=== PATIENT | male | born 1960 | race Caucasian/White ===

== ENCOUNTER 2017-03-16 05:06 | Inpatient (IN) | payer MEDICARE ==
[~2017-03-16] VITALS: Ht 170.2 cm; Wt 63.2 kg
[2017-03-16] VITALS (9 sets, daily range): BP systolic 108–172; BP diastolic 62–93
[2017-03-16] MEDS ORDERED: XANAX 0.5MG TA0.5 MG PO (05:20)
[2017-03-16] MEDS ORDERED: OXYCODONE HCL15 MG PO (05:21)
[2017-03-16] MEDS ORDERED: PRAVACHOL 40MG40 MG PO (05:22)
[2017-03-16] MEDS ORDERED: OXYBUTYNIN5 MG PO (05:22)
[2017-03-16] MEDS ORDERED: PANTOPRAZOLE SO40 MG PO (05:23)
[2017-03-16] MEDS ORDERED: ASPIRIN 81MG TA81 MG PO (05:23)
--- OUTSIDE RECORDS SUMMARY | 2017-03-16 05:42 | External Medical Summary Rpt | CCD ---
Author Author CLEVE Address Unknown Phone Purpose Continuity of Care Document - through 2016
--- OUTSIDE RECORDS SUMMARY | 2017-03-16 05:43 | External Medical Summary Rpt | CCD ---
Author Author Conduent Organization [employer] Address Unknown Phone Unavailable Purpose Continuity of Care Document - through 2016
--- OUTSIDE RECORDS SUMMARY | 2017-03-16 05:44 | External Medical Summary Rpt | CCD ---
Demographics Preferred Language Albanian Marital Status Unknown Worship Affiliation Unknown Race Unknown Ethnic Group Unknown Author Author , CLEVE POON Address Unknown Phone Immunization Unable to retrieve immunization data due to connection failure with Immunization Registry. Please try again later.
--- OUTSIDE RECORDS SUMMARY | 2017-03-16 05:44 | External Medical Summary Rpt | CCD ---
Demographics Preferred Language Icelandic Marital Status Unknown Sabianist Affiliation Unknown Race Unknown Ethnic Group Unknown Author Author , CLEVE POON Address Unknown Phone Immunization Unable to retrieve immunization data due to connection failure with Immunization Registry. Please try again later.
[2017-03-16 06:10] LABS: HEMOGLOBIN 15.9 g/dL (14.1-18.0); LYMPH # 1.7 K/mm3 (0.7-4.5); LYMPH % 22.8 % (10-50)
[2017-03-16 06:38] LABS: BUN 14 mg/dL (7-18); GFR (ESTIMATED) 86 ML/MIN (>60)
--- NOTE | 2017-03-16 07:09 | RADIOLOGY REPORT PS360 ---
CHEST-PORTABLE HISTORY: Chest pain CP ORDERING PHYSICIAN: Sierra Hicks MD PATIENT AGE: 57 years COMPARISON: None available FINDINGS: There has been prior median sternotomy with CABG. Pericardial pacer wires are noted over the lower aspect of the heart on the right. Normal heart size. No evidence of CHF. Multiple nodular opacities are present in the right apex. There are surgical clips in the right axilla/infraclavicular region. No lobar consolidation or collapse. No acute bony anomalies. IMPRESSION: 1. Prior CABG. 2. Multiple nodular opacities in the right apex age and etiology indeterminate. No previous exams available for comparison. Differential diagnosis includes postinflammatory/infectious process versus metastatic disease. Comparison with old exams or follow-up may confirm stability .
--- NOTE | 2017-03-16 07:11 | Emergency Room Report ---
History of Present Illness Time Seen by MD To Presenting Problem in Triage Pt arrived:Ambulance Stretcher Presenting Problem:C/O RIGHT NECK AND SHOULDER BLADE PAIN FOR 3 WEEKS, C/O GAS TONIGHT BUT WALKING HELPED THE PAIN. GIVEN NTG X 2 SL AND ASPIRIN 325 MG PO ENROUTE PER EMS Onset of symptoms date/time:/ or onset unknown for:MEDICAL HX UNKNOWN Treatment Prior to Arrival: EMS TRANSPORT MAILING CLERK Provided by:EMERGENCY COMMUNICATIONS DISPATCHER Sepsis Risk Assessment: Temp: 98 B/P: 150/78 MAP: 88 Pulse: 59 Resp: 22 Recent fever? N Clinical Suspician of Infection? N Mental Status: 1 - Regular (Normal Baseline) Sepsis Risk: Have you (or family members/close friends) recently traveled outside the [place]? N If Yes, where/when: Have you had exposure to infectious disease within the past month? N TB? Other? Specify: Source patient, RN notes reviewed, family, old records Exam Limitations no limitations Comment pt with known card disease with chest pressure with relief with ntg and no chest pain at this time Cardiac Chest Pain Chest pain indicative of cardiac Yes Timing/Duration 1-3 hours, gone now Severity/Quality moderate, indigestion Location central Chest Pain Radiation arm(s) Activities at Onset light activity Nitro Today/Relief 0.4 mg x 2, provided by EMS, complete relief Aspirin Treatment Today 325 mg x 1, provided by EMS Beta ray treatment today no beta ray taken Cardiac risk factors + cardiovascular disease, + family history Prior Workup/Intervention CABG-vessel(s) Timing/Duration this morning Severity moderate ALLERGIES Coded Allergies: No Known Allergies (03/16/17) Home Medications Reported Medications Alprazolam (Xanax 0.5MG) 0.5 MG PO TID OXYCODONE 7.5MG/[id number] (Oxycodon-Acetaminophen 7.5-325) 2 TAB PO Q6 HOURS PRN PAIN PRAVASTATIN SODIUM (Pravastatin Sodium) 40 MG PO QHS OXYBUTYNIN CHLORIDE (Oxybutynin 5MG Tab) 5 MG PO TID Pantoprazole Sodium (Pantoprazole 40MG) 40 MG PO DAILY ASPIRIN (Aspirin) 81 MG PO DAILY History Medical History General CAD? Yes Angina: Yes PA: Yes Hypertension? Yes Hyperlipidemia? No CHF? No DVT? No PE? No COPD? Yes Asthma? No Anemia? No GERD? No Gastric ulcers? No GI Bleed? No Hernia? Yes Thyroid Problems? No Hypothyroidism? No CVA? No Seizures? No Diabetes? No Renal Insuffiency? No End Stage Renal Disease? No UTI? No Stones? Yes BPH? Yes GB Disease: Yes Nephritic Syndrome? No Asplenia? No Hepatitis? No Sickle Cell Disease? No Arthritis? No Migraines? No Cataracts? No Glaucoma? No MRSA? No HIV? No TB? No Anxiety? Yes Depression? Yes Cancer? No More? No Immunization Hx DT/Tetanus Unknown Surgical Hx Previous Surgery?Y Coronary Artery Bypass HERNIA REPAIR BACK SX X 5 BILATERAL EYE SURGERY Social History Smoking Hx Smoker: Former Smoker Tobacco: No Alcohol Alcohol: No Drugs none Review of Systems All Other Systems Reviewed and Negative Constitutional denies fever Eyes denies drainage ENT denies: ear discharge, epistaxis, throat pain. Respiratory denies cough, denies shortness of breath, denies wheezing Cardiovascular see HPI, chest pain, denies syncope Gastrointestinal denies abdominal pain, denies diarrhea, denies vomiting Genitourinary denies: frequency, hesitancy, hematuria. Musculoskeletal denies back pain, denies joint pain, denies joint swelling, denies neck pain Skin denies rash Psychiatric/Neurological denies headache, denies seizure Physical Exam Vital Signs Vital Signs Date Time Temp Pulse Resp B/P Pulse O2 O2 Flow FiO2 Ox Delivery Rate 03/16 0730 67 22 142/78 99 03/16 0643 59 22 150/78 99 03/16 0559 60 22 131/78 99 03/16 0509 98.0 61 20 113/76 95 - WBC >12,000 or <4,000 or 10% bands? 2 or more SIRS Criteria Met? B/P:142/78 MAP:88 Creatinine >2.0? UA output<0.5ml/kg/hr for 2 hrs? Platelet count >100,000? Lactate >2.0mmol/1? INR >1.2 or PTT > than 60 sec? Evidence of Organ Dysfunction? Provider documented clinical suspician of infection? N Sepsis Criteria Count: 1 Sepsis Risk: General Appearance no apparent distress Eye Exam - bilateral eye PERRL, bilateral eye EOMI Ear, Nose, Throat normal ENT inspection Neck supple Respiratory Status No: respiratory distress. Lung Sounds bilateral: lungs clear. Cardiovascular regular rate/rhythm, systolic murmur Peripheral Pulses Pulses normal Yes Gastrointestinal soft Extremities normal inspection Strength 4 Upper Ext (L), 4 Upper Ext (R), 4 Lower Ext (L), 4 Lower Ext (R) Neurologic alert, senior sales representative II-XII nml as tested, no motor/sensory deficits Reflexes Reflexes normal No Mental status normal mood/affect Skin intact Medical Decision Making LABS/Meds/Orders Pt receiving controlled substance in ED? No Results/Orders Laboratory Tests 03/16/17 0520: Sodium 136, Potassium 3.6, Chloride 101, Carbon Dioxide 28, BUN 14, Creatinine 0.9, Estimated Creat Clear 82, Estimated GFR (MDRD) 86, Glucose 109 H, Calcium 9.6, Total Bilirubin 0.8, AST 29, ALT 42, Alkaline Phosphatase 85, Creatine Kinase 55, CK-MB (CK-2) Rel Index 0.9, CK and CKMB Interp < 0.5, Troponin I 0.14 H, Total Protein 7.5, Albumin 3.9, Globulin 3.6 H, Albumin/Globulin Ratio 1.1, WBC 7.3, RBC 5.23, Hgb 15.9, Hct 46.7, MCV 89.3, RDW 13.5, Plt Count 155, MPV 8.6, Gran % 67.3, Gran # 4.9, Lymphocytes % 22.8, Monocytes % 8.4, Eosinophils % 0.9, Basophils % 0.5, Lymphocytes # 1.7, Monocytes # 0.6, Eosinophils # 0.1, Basophils # 0.0, PUBS MCHC 34.1, MCH 30.4 Current Medication Orders Sig/Laly Start time Last Medication Dose Route Stop Time Status Admin Fentanyl Citrate 25 MCG PRN PRN 03/16 730 UNV IV 03/16 2300 Fentanyl Citrate 50 MCG PRN PRN 03/16 730 UNV IV 03/16 2300 Flumazenil 0.2 MG PRN PRN 03/16 730 UNV IV 03/16 2300 Heparin Sodium (Beef 5,000 UNITS PRN PRN 03/16 730 UNV Lung) IV 03/17 728 Heparin Sodium/ 3,000 UNITS PRN PRN 03/16 730 UNV Sodium Chloride IV 03/17 728 Lidocaine HCl 20 ML ONCE ONE 03/16 730 UNV IJ 03/16 731 Midazolam HCl 1 MG PRN PRN 03/16 730 UNV IV 03/16 2300 Midazolam HCl 1 MG PRN PRN 03/16 730 UNV IV 03/16 2300 Naloxone HCl 0.4 MG [id number] PRN 03/16 730 UNV IV 03/16 2300 Nitroglycerin 1 IN ONCE ONE 03/16 730 DC 03/16 TP 03/16 Nitroglycerin 800 MCG PRN PRN 03/16 730 UNV IV 03/17 728 Verapamil HCl 5 MG PRN PRN 03/16 730 UNV IV 03/17 728 Nitroglycerin 0 .STK-MED ONE 03/16 725 DC .ROUTE Ticagrelor 180 MG ONCE ONE 03/16 715 DC 03/16 PO 03/16 Ticagrelor 0 .STK-MED ONE 03/16 705 DC PO Sodium Chloride 10 ML PRN PRN 03/16 530 AC IV 03/17 528 Orders Procedure Date/time Status ECHO ADULT 03/16 729 Active IV SALINE LOCK 03/16 528 Active ELECTROCARDIOGRAM REQUEST 03/16 515 Active IV SALINE LOCK 03/16 515 Active SUPERVISOR NUT PROCESSING 03/16 515 Active CBC WITH AUTO DIFF 03/16 515 Complete CARDIAC ENZYMES 03/16 515 Complete CHEM 12 PROFILE 03/16 515 Complete 12 LEAD EKG-SYLVIASON (INITIAL) 03/16 UNK Active VITAL SIGNS 03/16 UNK Active Schedule Procedure 03/16 UNK Active PREPARE CONSENT 03/16 UNK Active CM/EKG CM/EKG 1 Monitor Rhythm Sinus Bradycardia EKG abn with t inversion and anuyersymal changes CM/EKG 2 Monitor Rhythm Sinus Bradycardia EKG compared w/(date of old), no changes XRAY/CT/US XRAY/CT/US XRAY chest XR interpretation by reviewed by me Xray Results normal/NAD RYAN Score for N-Stemi/Angina RYAN N-STEMI SCORE RYAN N-STEMI SCORE Response Value Age of patient Less than 65 yrs 0 Number of risk factors for CAD Presence of 3 or more 1 Prior coronary artery stenosis (seen in angiography) 50% or more 1 ST-Segment deviation on ECG (>1 min) Present 1 Prior aspirin intake ASA intake in last 7 days 1 Severe anginal chest pain 2 or more episodes/24hr 1 Elevated cardiac markers(CK-MB or troponin) Present 1 Total 6 Departure Departure Time of Disposition 722 Disposition Still a Patient Clinical Impression Primary Impression: Non-STEMI (non-ST elevated myocardial infarction) Condition STABLE Referrals SUMANTH STEVENS discussed with dr calvo ED Critical Care Critical Care No at [phone]
--- NOTE | 2017-03-16 07:44 | CONSULT NOTE ---
Standard Demographics Patient Demo Date of Consultation: 03/16/17 Referring Provider: Brandon Umaña MD Reason for Consultation: Angina, CAD with prior CABG PRIMARY DIAGNOSIS: Chest pain Problem list Problem list: 1. CAD A. UT with CABG, 2003, [facility] B. Recurrent UT with repeat CABG, [id number], [facility] 2. HTN 3. Hyperlipidemia 4. Tobacco use with COPD 5. Gallstones 6. Kidney Stones 7. Chronic back pain History of present illness: History of present illness: 57 yo WM in ER with known CAD/CABG and previous UT's presented for recurrent chest pressure with radiation to both shoulders starting last evening. Similar symptoms have been present for about one month but are not associated with activity and are worse with sitting or lieing down. The symptoms last evening were worse, woke him from sleep and prompted ER visit. Pt was given ASA and NTG in ER with resolution of symptoms. EKG shows sinus torsten, anterior infarct pattern with STT wave abnormalities with possible aneurysmal changes. Initial troponin is positive at 0.14. Cardiology consulted for evaluation. Past Medical History: General: Hypertension Yes CVA No Seizures No TB No COPD Yes Asthma No Diabetes No Angina Yes UT Yes Hyperlipidemia No Cancer No MRSA No GB Disease Yes Past Surgical HX: Previous Surgery?Y Coronary Artery Bypass HERNIA REPAIR BACK SX X 5 BILATERAL EYE SURGERY Allergies Coded Allergies: No Known Allergies (03/16/17) Home medications: Reported Medications Alprazolam (Xanax 0.5MG) 0.5 MG PO TID OXYCODONE 7.5MG/[id number] (Oxycodon-Acetaminophen 7.5-325) 2 TAB PO Q6 HOURS PRN PAIN PRAVASTATIN SODIUM (Pravastatin Sodium) 40 MG PO QHS OXYBUTYNIN CHLORIDE (Oxybutynin 5MG Tab) 5 MG PO TID Pantoprazole Sodium (Pantoprazole 40MG) 40 MG PO DAILY ASPIRIN (Aspirin) 81 MG PO DAILY Current Medications: Current Medications Fentanyl Citrate 25 MCG PRN PRN IV (UNV) Fentanyl Citrate 50 MCG PRN PRN IV (UNV) Flumazenil 0.2 MG PRN PRN IV (UNV) Heparin Sodium (Beef Lung) 5,000 UNITS PRN PRN IV (UNV) Heparin Sodium/Sodium Chloride 3,000 UNITS PRN PRN IV (UNV) Lidocaine HCl 20 ML ONCE ONE IJ (UNV) Midazolam HCl 1 MG PRN PRN IV (UNV) Midazolam HCl 1 MG PRN PRN IV (UNV) Naloxone HCl 0.4 MG [id number] PRN IV (UNV) Nitroglycerin 1 IN ONCE ONE TP (DC) Nitroglycerin 800 MCG PRN PRN IV (UNV) Verapamil HCl 5 MG PRN PRN IV (UNV) Nitroglycerin 0 .STK-MED ONE .ROUTE (DC) Ticagrelor 180 MG ONCE ONE PO (DC) Ticagrelor 0 .STK-MED ONE PO (DC) Sodium Chloride 10 ML PRN PRN IV Immunization HX DT/Tetanus Unknown Family history Family HX Family Hx Insignificant No Social Hx: Smoking HX Tobacco Yes Packs/day < 1 PACK Alcohol Alcohol: No Hx of Drug Use Drug Use? No Review of systems: Constitutional No: no symptoms reported. Respiratory SOB with excertion. Cardiovascular see HPI, chest pain Gastrointestinal/Abdominal No no symptoms reported Genitourinary No: no symptoms reported. Musculoskeletal back pain. Neurological No: no symptoms reported. Exam: Admission Vital Signs: 1ST Vital Signs Result Date Time Pulse Ox 95 03/16 509 B/P 113/76 03/16 509 Temp 98.0 03/16 509 Pulse 61 03/16 509 Resp 20 03/16 509 Last Vital Signs: Vital Signs Result Date Time Pulse Ox 99 03/16 730 B/P 142/78 03/16 730 Pulse 67 03/16 730 Resp 22 03/16 730 Temp 98.0 03/16 509 Exam General appearance: alert, awake, no acute distress Neck: no carotid bruit, no JVD Cardiovascular: bradycardia Respiratory: clear to auscultation ABD: soft, no tenderness Extremities: moves all, no peripheral edema Neuro: alert, intact, oriented Laboratory data: Laboratory Tests 03/16/17 0520: Sodium 136, Potassium 3.6, Chloride 101, Carbon Dioxide 28, BUN 14, Creatinine 0.9, Estimated Creat Clear 82, Estimated GFR (MDRD) 86, Glucose 109 H, Calcium 9.6, Total Bilirubin 0.8, AST 29, ALT 42, Alkaline Phosphatase 85, Creatine Kinase 55, CK-MB (CK-2) Rel Index 0.9, CK and CKMB Interp < 0.5, Troponin I 0.14 H, Total Protein 7.5, Albumin 3.9, Globulin 3.6 H, Albumin/Globulin Ratio 1.1, WBC 7.3, RBC 5.23, Hgb 15.9, Hct 46.7, MCV 89.3, RDW 13.5, Plt Count 155, MPV 8.6, Gran % 67.3, Gran # 4.9, Lymphocytes % 22.8, Monocytes % 8.4, Eosinophils % 0.9, Basophils % 0.5, Lymphocytes # 1.7, Monocytes # 0.6, Eosinophils # 0.1, Basophils # 0.0, PUBS MCHC 34.1, MCH 30.4 Plan Assessment: 1. Chest pain with abnormal EKG and elevated troponins, consistent with NSTEMI. 2. HTN 3. HLD, on statin 4. COPD with continued tobacco use 5. chronic pain syndrome RYAN N-STEMI SCORE RYAN N-STEMI SCORE Response Value Age of patient Less than 65 yrs 0 Number of risk factors for CAD Presence of 3 or more 1 Prior coronary artery stenosis (seen in angiography) 50% or more 1 ST-Segment deviation on ECG (>1 min) Present 1 Prior aspirin intake ASA intake in last 7 days 1 Severe anginal chest pain 2 or more episodes/24hr 1 Elevated cardiac markers(CK-MB or troponin) Present 1 Total 6 Plan: 1. Cardiac cath Risks and benefits discussed with patient and family, he agrees to proceed. 2. ASA and Brilinta given. 3. NTG paste started. 4. Echo in progress at 0903
--- NOTE | 2017-03-16 07:44 | CONSULT NOTE ---
Standard Demographics Patient Demo Date of Consultation: 03/16/17 Referring Provider: Brandon Umaña MD Reason for Consultation: Angina, CAD with prior CABG PRIMARY DIAGNOSIS: Chest pain Problem list Problem list: 1. CAD A. [place] with CABG, 2003, [facility] B. Recurrent HI with repeat CABG, [id number], [facility] 2. HTN 3. Hyperlipidemia 4. Tobacco use with COPD 5. Gallstones 6. Kidney Stones 7. Chronic back pain History of present illness: History of present illness: 57 yo WM in ER with known CAD/CABG and previous HI's presented for recurrent chest pressure with radiation to both shoulders starting last evening. Similar symptoms have been present for about one month but are not associated with activity and are worse with sitting or lieing down. The symptoms last evening were worse, woke him from sleep and prompted ER visit. Pt was given ASA and NTG in ER with resolution of symptoms. EKG shows sinus torsten, anterior infarct pattern with STT wave abnormalities with possible aneurysmal changes. Initial troponin is positive at 0.14. Cardiology consulted for evaluation. Past Medical History: General: Hypertension Yes CVA No Seizures No TB No COPD Yes Asthma No Diabetes No Angina Yes HI Yes Hyperlipidemia No Cancer No MRSA No GB Disease Yes Past Surgical HX: Previous Surgery?Y Coronary Artery Bypass HERNIA REPAIR BACK SX X 5 BILATERAL EYE SURGERY Allergies Coded Allergies: No Known Allergies (03/16/17) Home medications: Reported Medications Alprazolam (Xanax 0.5MG) 0.5 MG PO TID OXYCODONE 7.5MG/[id number] (Oxycodon-Acetaminophen 7.5-325) 2 TAB PO Q6 HOURS PRN PAIN PRAVASTATIN SODIUM (Pravastatin Sodium) 40 MG PO QHS OXYBUTYNIN CHLORIDE (Oxybutynin 5MG Tab) 5 MG PO TID Pantoprazole Sodium (Pantoprazole 40MG) 40 MG PO DAILY ASPIRIN (Aspirin) 81 MG PO DAILY Current Medications: Current Medications Fentanyl Citrate 25 MCG PRN PRN IV (UNV) Fentanyl Citrate 50 MCG PRN PRN IV (UNV) Flumazenil 0.2 MG PRN PRN IV (UNV) Heparin Sodium (Beef Lung) 5,000 UNITS PRN PRN IV (UNV) Heparin Sodium/Sodium Chloride 3,000 UNITS PRN PRN IV (UNV) Lidocaine HCl 20 ML ONCE ONE IJ (UNV) Midazolam HCl 1 MG PRN PRN IV (UNV) Midazolam HCl 1 MG PRN PRN IV (UNV) Naloxone HCl 0.4 MG [id number] PRN IV (UNV) Nitroglycerin 1 IN ONCE ONE TP (DC) Nitroglycerin 800 MCG PRN PRN IV (UNV) Verapamil HCl 5 MG PRN PRN IV (UNV) Nitroglycerin 0 .STK-MED ONE .ROUTE (DC) Ticagrelor 180 MG ONCE ONE PO (DC) Ticagrelor 0 .STK-MED ONE PO (DC) Sodium Chloride 10 ML PRN PRN IV Immunization HX DT/Tetanus Unknown Family history Family HX Family Hx Insignificant No Social Hx: Smoking HX Tobacco Yes Packs/day < 1 PACK Alcohol Alcohol: No Hx of Drug Use Drug Use? No Review of systems: Constitutional No: no symptoms reported. Respiratory SOB with excertion. Cardiovascular see HPI, chest pain Gastrointestinal/Abdominal No no symptoms reported Genitourinary No: no symptoms reported. Musculoskeletal back pain. Neurological No: no symptoms reported. Exam: Admission Vital Signs: 1ST Vital Signs Result Date Time Pulse Ox 95 03/16 509 B/P 113/76 03/16 509 Temp 98.0 03/16 509 Pulse 61 03/16 509 Resp 20 03/16 509 Last Vital Signs: Vital Signs Result Date Time Pulse Ox 99 03/16 730 B/P 142/78 03/16 730 Pulse 67 03/16 730 Resp 22 03/16 730 Temp 98.0 03/16 509 Exam General appearance: alert, awake, no acute distress Neck: no carotid bruit, no JVD Cardiovascular: bradycardia Respiratory: clear to auscultation ABD: soft, no tenderness Extremities: moves all, no peripheral edema Neuro: alert, intact, oriented Laboratory data: Laboratory Tests 03/16/17 0520: Sodium 136, Potassium 3.6, Chloride 101, Carbon Dioxide 28, BUN 14, Creatinine 0.9, Estimated Creat Clear 82, Estimated GFR (MDRD) 86, Glucose 109 H, Calcium 9.6, Total Bilirubin 0.8, AST 29, ALT 42, Alkaline Phosphatase 85, Creatine Kinase 55, CK-MB (CK-2) Rel Index 0.9, CK and CKMB Interp < 0.5, Troponin I 0.14 H, Total Protein 7.5, Albumin 3.9, Globulin 3.6 H, Albumin/Globulin Ratio 1.1, WBC 7.3, RBC 5.23, Hgb 15.9, Hct 46.7, MCV 89.3, RDW 13.5, Plt Count 155, MPV 8.6, Gran % 67.3, Gran # 4.9, Lymphocytes % 22.8, Monocytes % 8.4, Eosinophils % 0.9, Basophils % 0.5, Lymphocytes # 1.7, Monocytes # 0.6, Eosinophils # 0.1, Basophils # 0.0, PUBS MCHC 34.1, MCH 30.4 Plan Assessment: 1. Chest pain with abnormal EKG and elevated troponins, consistent with NSTEMI. 2. HTN 3. HLD, on statin 4. COPD with continued tobacco use 5. chronic pain syndrome RYAN N-STEMI SCORE RYAN N-STEMI SCORE Response Value Age of patient Less than 65 yrs 0 Number of risk factors for CAD Presence of 3 or more 1 Prior coronary artery stenosis (seen in angiography) 50% or more 1 ST-Segment deviation on ECG (>1 min) Present 1 Prior aspirin intake ASA intake in last 7 days 1 Severe anginal chest pain 2 or more episodes/24hr 1 Elevated cardiac markers(CK-MB or troponin) Present 1 Total 6 Plan: 1. Cardiac cath Risks and benefits discussed with patient and family, he agrees to proceed. 2. ASA and Brilinta given. 3. NTG paste started. 4. Echo in progress at 0903
--- OUTSIDE RECORDS SUMMARY | 2017-03-16 07:47 | External Medical Summary Rpt | CCD ---
Author Author , CLEVE POON Address Unknown Phone [email or web address] Purpose Continuity of Care Document - through 2016 Problems Code Diagnosis DOS Provider Status D69.6 Thrombocyto penia, unspecified E78.1 Pure hyperglycer idemia F41.1 Generalized anxiety disorder I10 Essential (primary) hypertensio n I25.10 Atheroscler otic heart disease of [place] coronary artery without angina pectoris K21.9 Gastro-esop hageal reflux disease without esophagitis K76.0 Fatty (change of) liver, not elsewhere classified M25.512 Pain in left shoulder N40.1 Benign prostatic hyperplasia with lower urinary tract symptoms R00.1 Bradycardia , unspecified R53.83 Other fatigue Z00.00 Encounter for general adult medical examination without abnormal findings Z86.79 Personal history of other diseases of the circulatory system Z95.1 Presence of aortocorona ry bypass graft
--- OUTSIDE RECORDS SUMMARY | 2017-03-16 07:47 | External Medical Summary Rpt | Continuity of Care Document ---
Author Author Organization Address Unknown Phone Unavailable Care Team Providers Care Census Taker Name Role Phone , Unavailable Unavailable EMS Current Medications Section EMS Allergies and Adverse Reactions EMS Past Medical History Medications Administered Section EMS Procedures Performed EMS Vital Signs EMS Patient Care Report Narrative Dispatched for a 57 YOM thinks he is having a heart attack. Arrived on the scene to find patient up and walking around. Patient states he is having chest pain right side of his chest that goes under right shoulder blade. Patient advises that he has been up since 0100 today with this and that walking around helps. Patient states that this all started 2 weeks ago, after an argument with family. He advises that he does have kidney stones and gallstones and that he has a doctors appointment later this day. Patient also has an extensive cardiac history, and he advises that his past heart attacks were atypical symptoms. Patient requested transport to [facility] with the insistence of his daughter and Transported to [facility], placed in room 7 and care transferred to RN.
--- OUTSIDE RECORDS SUMMARY | 2017-03-16 07:47 | External Medical Summary Rpt | CCD ---
Author Author , CLEVE POON Address Unknown Phone [email or web address] Purpose Continuity of Care Document - through 2016 Problems Code Diagnosis DOS Provider Status D69.6 Thrombocyto penia, unspecified E78.1 Pure hyperglycer idemia F41.1 Generalized anxiety disorder I10 Essential (primary) hypertensio n I25.10 Atheroscler otic heart disease of [place] coronary artery without angina pectoris K21.9 Gastro-esop [...]
--- OUTSIDE RECORDS SUMMARY | 2017-03-16 07:47 | External Medical Summary Rpt | Continuity of Care Document ---
Author Author Organization Address Unknown Phone Unavailable Care Team Providers Care Package Handler Name Role Phone , Unavailable Unavailable EMS [...] were atypical symptoms. Patient requested transport to [facility] with the insistence of his daughter and Transported to [facility], placed in room 7 and care transferred to RN.
--- OUTSIDE RECORDS SUMMARY | 2017-03-16 07:49 | External Medical Summary Rpt ---
Author Author CLEVE Sage, CLEVE Sage Organization [employer] Address Unknown Phone Unavailable
--- OUTSIDE RECORDS SUMMARY | 2017-03-16 07:49 | External Medical Summary Rpt | CCD ---
Demographics Preferred Language Moldovan Marital Status Unknown Temple Affiliation Unknown Race Unknown Ethnic Group Unknown Author Author , CLEVE POON Address Unknown Phone Immunization Unable to retrieve immunization data due to connection failure with Immunization Registry. Please try again later.
--- OUTSIDE RECORDS SUMMARY | 2017-03-16 07:49 | External Medical Summary Rpt | CCD ---
Demographics Preferred Language Filipino Marital Status Unknown Baptism Affiliation Unknown Race Unknown Ethnic Group Unknown Author Author , CLEVE POON Address Unknown Phone Immunization Unable to retrieve immunization data due to connection failure with Immunization Registry. Please try again later.
--- NOTE | 2017-03-16 08:17 | PHARMACY CLINIC NOTE ---
Patient Demographics Patient Demographics Admission date: 03/16/17 Date: 03/16/17 Time: 08 Allergies Coded Allergies: No Known Allergies (03/16/17) HEIGHT- FT: 5 IN: 8.00 K.772 VTE General Information Labs: Laboratory Tests 03/16 0520 Hematology Hgb (14.1 - 18.0 g/dL) 15.9 Hct (42.0 - 52.0 %) 46.7 Plt Count (142 - 424 K/mm3) 155 Disclaimer The following section includes nursing documentation that has been pulled in for pharmacy review. VTE prophylaxis NQF [id number] VTE prophylaxis ordered? Yes Type of prophylaxis/treatment: MINNIE at 0817
--- NOTE | 2017-03-16 10:48 | RADIOLOGY REPORT PS360 ---
CARDIAC CATHETERIZATION DATE OF CATHETERIZATION:03/16/2017 10:16 AM PROCEDURES: 1. Left heart catheterization 2. Left ventriculogram 3. Selective coronary angiogram 4. Left internal mammary angiography 5. Selective engagement of the saphenous vein graft to the circumflex artery 6. Selective engagement of the saphenous vein graft to the right coronary artery INDICATION FOR TEST: 1. History of coronary artery disease 2. History of myocardial infarction 3. History of coronary artery bypass graft surgery 4. Elevated troponins Informed consent was obtained prior to the procedure. COMPLICATIONS: None ESTIMATED BLOOD LOSS: Less than 10 ml. TECHNIQUE: One percent lidocaine was used to anesthetize the right groin. The right femoral artery was accessed via the Seldinger technique. A 4-Mauritian sheath was placed in the right femoral artery. The JL-4 JR4 multipurpose catheter were used to perform left heart catheterization left ventriculogram selective coronary angiography as well as left internal mammary angiography and selective engagement of the 2 saphenous vein grafts. At the end of the procedure the patient transferred the postop holding area in stable condition for sheath removal ANGIOGRAPHIC RESULTS: 1. The left main artery normal 2. The left anterior descending artery is proximally occluded 3. The circumflex artery is nondominant and gives rise to a ramus intermedius which has a mid vessel 70-80% stenosis at a 2 mm vessel. The remaining circumflex artery is occluded not giving rise to any obtuse marginal arteries 4. The right coronary artery is dominant and subtotally occluded at mid segment immediately after the RV marginal 5. The MCGUIRE ventriculogram reveals mid anterior apical akinesis with aneurysmal dilatation. The anterior base does move. Inferior wall has good function with mild distal inferior apical hypokinesis. Estimated ejection fraction 45-50% 6. The left ventricular end-diastolic pressure less than 10 mmHg 7. The left internal mammary artery is physiologically and anatomically proximally occluded with no antegrade communication to the left anterior descending artery 8. The saphenous vein graft to the posterior descending artery off the right coronary artery is widely patent with mild atheromatous plaque 9. The saphenous vein graft to the left circumflex artery is patent. The vein graft originates off the aorta and is normal in approximately 2 cm distal to the aorta splits into an inferior and superior vein grafts limb. The superior limb has no significant atheromatous plaque greater than 20% and makes its anastomosis on to the proximal second obtuse marginal artery. There is antegrade flow and retrograde filling of this second obtuse marginal artery. The inferior vein graft limb has a long tubular 50-60% stenosis compared to its proximal and distal segment. Distal to this tubular stenosis, the vein graft is a large 4 to 5 mm caliber vessel and then makes its anastomosis on to the third obtuse marginal artery. There is antegrade and retrograde filling of this third obtuse marginal artery. The caliber of the 50-60% tubular stenosis within the inferior limb of the vein graft matches the caliber of the third obtuse marginal artery in which the vein graft is anastomosed. IMPRESSION: 1. Chronic occlusion of the proximal LAD with occluded CHEN graft and akinetic anterior apical aneurysmal wall as described above 2. Large regional wall motion abnormality with only mildly reduced ejection fraction at 45-50% 3. Normal left ventricular end-diastolic pressure 4. Patent saphenous vein graft to the dominant right coronary artery 5. Patent saphenous vein graft which splits in a Y manner and supplies the second and third obtuse marginal artery. The long stenosis in the vein graft supplying the third obtuse marginal artery matches the caliber of the [place] third obtuse marginal artery therefore I do not believe stenting will benefit or improved flow to the second obtuse marginal artery PLAN: 1. Continue medical management 2. Antianginal medications 3. LDL less than 55 4. Cardiac rehabilitation 5. Aggressive risk factor modification
--- NOTE | 2017-03-16 13:48 | HISTORY AND PHYSICAL REPORT ---
Demographics: Admit date: 03/16/17 Chief complaint: chest pressure PRIMARY DIAGNOSIS: NSTEMI Allergies: Coded Allergies: No Known Allergies (03/16/17) History of present illness: History of present illness: 57 yo WM in ER with known CAD/CABG and previous HI's presented for recurrent chest pressure with radiation to both shoulders starting last evening. Similar symptoms have been present for about one month but are not associated with activity and are worse with sitting or lieing down. The symptoms last evening were worse, woke him from sleep and prompted ER visit. Pt was given ASA and NTG in ER with resolution of symptoms. EKG shows sinus torsten, anterior infarct pattern with STT wave abnormalities with possible aneurysmal changes. Initial troponin is positive at 0.14. Cardiology consulted for evaluation. Above per Cardiology ETHEL Marinelli. Family further reports h/o 60 pound weight loss during the last 6 months, right posterior chest pain, and loss of appetite. They were aware of lung nodules and state he was referred to oncology for FU; however patient refused to go. Patient was taken to the corn lab technician (see report). He had some intermittent confusion s/p cath. Shortly after admission to the floor he became increasingly confused. No unilateral weakness or slurred speech. He has been without his xanax and oxycodone for 3 days, both of which he has taken for years. Past medical history: Family HX Diabetes No CAD Yes Hypertension Yes Hyperlipidemia Yes Cancer No TB No Immunization HX DT/Tetanus Unknown Flu 2015-FSN Pneumonia Received In Past TB Test in last year No General CAD? Yes Angina: Yes HI: Yes Hypertension? Yes Hyperlipidemia? No CHF? No DVT? No PE? No COPD? Yes Asthma? No Anemia? No GERD? No Gastric ulcers? No GI Bleed? No Hernia? Yes Thyroid Problems? No Hypothyroidism? No CVA? No Seizures? No Diabetes? No Renal Insuffiency? No UTI? No Stones? Yes BPH? Yes GB Disease: Yes Nephritic Syndrome? No Asplenia? No Hepatitis? No Sickle Cell Disease? No Arthritis? No Migraines? No Cataracts? No Glaucoma? No MRSA? No HIV? No TB? No Anxiety? Yes Depression? Yes Cancer? No More? No Past Surgical HX Previous Surgery?Y Coronary Artery Bypass HERNIA REPAIR BACK SX X 5 BILATERAL EYE SURGERY Current home meds: Reported Medications OXYCODONE HCL (Oxycodone Hcl) 15 MG PO Q6HP PRN PAIN Alprazolam (Xanax 0.5MG) 0.5 MG PO TID PRAVASTATIN SODIUM (Pravastatin Sodium) 40 MG PO QHS OXYBUTYNIN CHLORIDE (Oxybutynin 5MG Tab) 5 MG PO TID Pantoprazole Sodium (Pantoprazole 40MG) 40 MG PO DAILY ASPIRIN (Aspirin) 81 MG PO DAILY Social Hx: Smoking HX Tobacco Yes Type Cigarettes Packs/day < 1 PACK Alcohol Alcohol: No Hx of Drug Use Drug Use? No Patient's support system is good Review of systems: Constitutional other (weight loss, loss of appetite). No: diaphoresis, fever, malaise. Eyes No: no symptoms reported. Ears, Nose, Mouth, Throat No no symptoms reported Respiratory cough, shortness of breath. No: wheezing. Cardiovascular see HPI Gastrointestinal/Abdominal No no symptoms reported Genitourinary No: no symptoms reported. Musculoskeletal No: no symptoms reported. Skin No: no symptoms reported. Neurological Yes: see HPI. Psychiatric No: no symptoms reported. Exam: Lab data for last 24 hours: Laboratory Tests 03/16/17 0520: Sodium 136, Potassium 3.6, Chloride 101, Carbon Dioxide 28, BUN 14, Creatinine 0.9, Estimated Creat Clear 82, Estimated GFR (MDRD) 86, Glucose 109 H, Calcium 9.6, Total Bilirubin 0.8, AST 29, ALT 42, Alkaline Phosphatase 85, Creatine Kinase 55, CK-MB (CK-2) Rel Index 0.9, CK and CKMB Interp < 0.5, Troponin I 0.14 H, Total Protein 7.5, Albumin 3.9, Globulin 3.6 H, Albumin/Globulin Ratio 1.1, WBC 7.3, RBC 5.23, Hgb 15.9, Hct 46.7, MCV 89.3, RDW 13.5, Plt Count 155, MPV 8.6, Gran % 67.3, Gran # 4.9, Lymphocytes % 22.8, Monocytes % 8.4, Eosinophils % 0.9, Basophils % 0.5, Lymphocytes # 1.7, Monocytes # 0.6, Eosinophils # 0.1, Basophils # 0.0, PUBS MCHC 34.1, MCH 30.4 Admission vital signs: 1ST Vital Signs Result Date Time Pulse Ox 95 03/16 509 B/P 113/76 03/16 509 Temp 98.0 03/16 050 Pulse 61 03/16 050 Resp 20 03/16 050 O2 Delivery ROOM AIR 03/16 1106 O2 Flow Rate 2 03/16 1300 Exam General appearance: alert, thin, restless Eyes: anicteric ENT: mucous membranes moist Neck: non-tender, no carotid bruit, no JVD Cardiovascular: regular rate & rhythm, no murmur, normal peripheral pulses, no peripheral edema Respiratory: clear to auscultation, diminished breath sounds ABD: non-distended, normal bowel sounds, no rebound, soft, no tenderness, no guarding, no organomegaly Genitourinary: no dysuria, no hematuria Extremities: moves all Musculoskeletal: sensation intact Skin: dry, intact, appears mildly jaundice Neuro: alert, oriented to self only, states "Obama is president" and year is "1978." Bilateral grasps equal, no arm drift, no facial droop, pedal pushes equal, PERRLA Plan: Problem List 1. Non-STEMI (non-ST elevated myocardial infarction) Assessment/Plan See cath report. Medical management. Continue ANN MARIE-I, ARB and aspirin. 2. Lung nodules Assessment/Plan Will obtain CT report from [place]. Repeat CT chest today. 3. Weight loss, abnormal Assessment/Plan Weight loss in presence of lung nodules and loss of appetite is concerning for metastatic disease. CT chest/abdomen and pelvis to evaluate for underlying disease. 4. Loss of appetite Assessment/Plan See above. 5. Right-sided chest pain Assessment/Plan Will obtain RUQ ultrasound to r/o cholecystitis. 6. Confusion and disorientation Assessment/Plan May be related to anesthesia, withdraws from opiates/benzos or even metastatic disease. Restart xanax at home dose. Decrease oxycodone to 5 mg PO Q6 hours PRN. Add risperdal PRN for agitation and disorientation. Plan: See above at 3322
--- NOTE | 2017-03-16 14:32 | RADIOLOGY REPORT PS360 ---
PROCEDURE: 2-D M-mode and color Doppler study INDICATIONS FOR THE TEST: Chest pain X COPDX Heart Murmur Tobacco Smoking Palpitations Fatigue Syncope Edema HypertensionXDiabetes Mellitus Rheumatic Fever SOB YEAGER Obesity Hyperlipidemia Family History HD Additional History CABG X 2,CAD NSTEMI PATIENT INFORMATION HEIGHT: 68 WEIGHT:145 GENDER: Male B/P:146/70 2-D/M-MODE INTERPRETATION: 2-D MEASUREMENTS OBSERVED VALUES IN CMS Right Ventricular Dimension (RVDd) 1.9 Interventricular Septum (Thickness)(IVsd) .9 Left Ventricular Internal Dimensions(LVIDd) 5.3 Left Ventricular Posterior Wall (Thickness)(LVPWd) 1.0 Aortic Root 3.5 Aortic Cusp Separation 2.0 Left Atrial Dimensions (LAD) 2.9 2D 1. Left atrium is qualitatively mildly enlarged, left ventricle is normal size, there is mild concentric left ventricular hypertrophy, visually estimated ejection fraction approximately 45%, there is marked hypokinesis involving the distal septum, anteroapical, apical, basal septum and inferobasal wall. 2. The right atrium and right ventricle are normal size and contractility. 3. The aortic valve is minimally thickened and fibrosed. 4. The mitral and tricuspid valve leaflets are minimally thickened. 5. The pulmonic valve is poorly visualized. 6. No significant pericardial effusion noted. DOPPLER INTERROGATION: Doppler interrogation of the aortic, mitral and tricuspid valvular presence of mild aortic, mild mitral and tricuspid regurgitation, tricuspid regurgitant jet velocity insufficient for calculation of the right ventricular systolic pressure, grade 1 diastolic dysfunction seen without tissue Doppler evidence of raised left atrial pressure. CONCLUSION: 1. Mildly enlarged left atrium, normal left ventricular size, mild concentric left ventricular hypertrophy, visually estimated ejection fraction of 45% with segmental wall motion abnormality described above, grade 1 diastolic dysfunction seen without tissue Doppler evidence of raised left atrial pressure. 2. Mild aortic, mild mitral and tricuspid regurgitation. 3. No significant pericardial effusion noted.
--- NOTE | 2017-03-16 15:22 | RADIOLOGY REPORT PS360 ---
US GALLBLADDER (ABD LTD) HISTORY: right upper quad pain ORDERING PHYSICIAN: Brandon Umaña MD PATIENT AGE: 57 years COMPARISON: None FINDINGS: PANCREAS: Unremarkable. No obvious mass or abnormal fluid collection. No ductal dilatation LIVER: No focal liver lesions demonstrated. Homogeneous echogenicity. No intrahepatic biliary ductal dilatation evident RIGHT KIDNEY: Unremarkable. Normal size and echogenicity. No hydronephrosis GALLBLADDER: There is a small stone in the region of the neck of the gallbladder. No gallbladder wall thickening. Cholecystic fluid or biliary dilatation. Common bile duct measures 4 mm. IMPRESSION: Cholelithiasis
--- NOTE | 2017-03-16 16:50 | RADIOLOGY REPORT PS360 ---
CT HEAD-W/WO CONTRAST INDICATION: Altered mental status, altered level consciousness, confusion AMS, LUNG NODULE,WEIGHT LOSS ORDERING PHYSICIAN: Brandon Umaña MD PATIENT AGE: 57 years COMPARISON: None TECHNIQUE: Axial images are obtained without and with contrast. FINDINGS: There is mild generalized atrophy. No midline shift, mass effect, intracranial hemorrhage, or hydrocephalus is evident. Nonspecific hypoattenuation is present in the periventricular region consistent with ischemic gliotic change from microvascular disease. No enhancing lesions are evident. No large aneurysms. No intra or extra-axial mass. No sinus air-fluid level or mastoid effusion. Frontal sinuses are aplastic. IMPRESSION: 1. No acute intracranial findings. 2. Involutional changes with mild atrophy and periventricular ischemic gliotic change
--- NOTE | 2017-03-16 16:59 | RADIOLOGY REPORT PS360 ---
CT CHEST W/ CONTRAST INDICATION: Pulmonary nodule, abnormal chest x-ray, chest pain, weight loss AMS, LUNG NODULE,WEIGHT LOSS ORDERING PHYSICIAN: Brandon Umaña MD PATIENT AGE: 57 years COMPARISON: None TECHNIQUE: Axial images are obtained with contrast. Sagittal and coronal reformatted images are reviewed as well. FINDINGS: There has been a prior CABG. No evidence of aortic aneurysm or dissection. No central pulmonary embolus apparent. The pulmonary artery/aorta ratio is less than 1. There is some minimal prominence of the left atrial appendage. There are severe coronary artery calcifications. No mediastinal or hilar mass or adenopathy. There are centrilobular emphysematous changes. Bilateral apical nodular densities are present most of which are calcified accounting for the radiographic abnormality noted in the right apex. There is a 7 mm noncalcified nodule in the superior segment of the left lower lobe medially. A 4 mm noncalcified nodule present in the right apex. There is some irregular noncalcified density in the right apex posteriorly likely related to postinflammatory scarring. Calcified granulomas present in the right perihilar region No acute bony anomalies. Artifact is present from an indwelling intrathecal device in the lower thoracic area IMPRESSION: 1. Centrilobular emphysematous changes with prior CABG and severe coronary artery disease. 2. Bilateral apical calcified nodular opacities accounting for the radiographic abnormality. These have a benign appearance and may reflect calcified granulomas 3. 7 mm noncalcified nodule in the superior segment of the right lower lobe. Consider [address] follow-up.
--- NOTE | 2017-03-16 17:09 | RADIOLOGY REPORT PS360 ---
CT ABD PELVIS W/ CONTRAST CLINICAL INDICATION: Weight loss AMS, LUNG NODULE,WEIGHT LOSS ORDERING PHYSICIAN: Brandon Umaña MD PATIENT AGE: 57 years COMPARISON: None TECHNIQUE: Axial images obtained with sagittal and coronal reformats. PROCEDURE: Oral Contrast: None IV Contrast: 75 mL [id number] performed in conjunction with the chest CT. FINDINGS: The liver, gallbladder, pancreas, and right adrenal gland are unremarkable. The left adrenal gland is enlarged with some calcification centrally and hypoattenuation superiorly measuring up to 3 cm AP and 1.5 cm transverse. The adrenal gland has a isointense lobular contour superiorly. Lobular areas measure up to 40 Hounsfield units. This does not have a typical appearance for an adenoma. The spleen is upper normal at 13 cm. No renal mass or hydronephrosis. There is a small right renal cyst inferiorly less than 1 cm. No obstructing renal or ureteral calculi. Nonobstructing left lower pole renal calculus at 6 mm. No evidence of aortic aneurysm. No evidence of appendicitis or diverticulitis. There is diverticulosis of the sigmoid colon. No intestinal obstruction or free air. No acute bony anomalies. Degenerative disc disease L4-5. IMPRESSION: 1. Left adrenal mass measuring 3 x 1.5 cm containing calcification and soft tissue density. Exact etiology is indeterminate. Adrenal carcinoma cannot be excluded based on imaging characteristics. If the patient has old films elsewhere to suggest that be obtained for comparison. If no old films are available then short term CT follow-up in 3 months is recommended 2. Nonobstructing left nephrolithiasis
[2017-03-16 21:09] LABS: FREE THYROXIN INDEX 7.5 ug/dl (5.93-13.13)
[2017-03-17 00:12] VITALS: BP 118/58
[2017-03-17 03:58] VITALS: BP 126/45
[2017-03-17 06:43] LABS: HEMOGLOBIN 14.4 g/dL (14.1-18.0); LYMPH # 1.5 K/mm3 (0.7-4.5); LYMPH % 28.6 % (10-50)
--- NOTE | 2017-03-17 07:28 | DISCHARGE SUMMARY STANDARD ---
Demographics Admit date: 03/16/17 Discharge date: 03/17/17 History of present illness History of present illness 57 yo WM in ER with known CAD/CABG and previous WA's presented for recurrent chest pressure with radiation to both shoulders starting last evening. Similar symptoms have been present for about one month but are not associated with activity and are worse with sitting or lieing down. The symptoms last evening were worse, woke him from sleep and prompted ER visit. Pt was given ASA and NTG in ER with resolution of symptoms. EKG shows sinus torsten, anterior infarct pattern with STT wave abnormalities with possible aneurysmal changes. Initial troponin is positive at 0.14. Cardiology consulted for evaluation. Above per Cardiology ETHEL Marinelli. Family further reports h/o 60 pound weight loss during the last 6 months, right posterior chest pain, and loss of appetite. They were aware of lung nodules and state he was referred to oncology for FU; however patient refused to go. Patient was taken to the labeling associate (see report). He had some intermittent confusion s/p cath. Shortly after admission to the floor he became increasingly confused. No unilateral weakness or slurred speech. He has been without his xanax and oxycodone for 3 days, both of which he has taken for years. Hospital Course Hospital Course: After the catheterization procedure patient had some mental status changes as noted above. Xanax and oxycodone were restarted and smaller doses and he improved, along with a dose of risperidone. Labs were done to review metabolic issues, and were negative for immediately noted metabolic abnormalities. Ammonia level unremarkable. TSH unremarkable, heavy metal screen is pending. CT scan of head was unremarkable without evidence of metastatic disease. Our radiologist reviewed his CT scans of abdomen, pelvis and chest, they felt that he had a benign pulmonary nodule that would simply need follow-up but were not as concerned with malignant disease as the family's report. There is an incidental adrenal enlargement on the LEFT side, but this simply needs to be followed in 3-4 months with another CAT scan. Gallbladder ultrasonography showed stones without evidence of inflammation. Currently the patient's asymptomatic. This morning the patient was feeling much better, able to get up and walk around , alert, oriented 3. Lungs were clear with excellent air movement. No edema noted. Heart rate regular with a soft 2/6 ejection murmur as previously noted. No edema. Patient will be discharged home with adjusted cardiac medications as noted in the medication reconciliation form. Pharmacy service has gone over these medicines in detail with patient. Will follow up with me in one week to review his status with these new medications. And to continue workup for the above-mentioned problems. Discharge diagnoses Problem List 1. Non-STEMI (non-ST elevated myocardial infarction) 2. Lung nodules 3. Weight loss, abnormal 4. Loss of appetite 5. Right-sided chest pain 6. Confusion and disorientation Medications Medications: Discharge meds are as noted. Follow up Follow up in office in: 7 DAYS with: Brandon Umaña MD at 1643
[2017-03-17] MEDS ORDERED: LIPITOR80 MG PO (07:29)
[2017-03-17] MEDS ORDERED: LISINOPRIL2.5 MG PO (07:29)
[2017-03-17 08:00] VITALS: BP 139/55
--- NOTE | 2017-03-17 09:30 | ACUTE CARE PROGRESS NOTE (QUA) ---
Progress Notes Subjective Date 03/17/17 Time 09 Note 57 yo WM in bed. Family present. No chest pains but still with right shoulder and arm pain. Cath reviewed and questions answered. Pt relates he has not been taking the lisinopril at home due to low BP. Objective Findings Last VS-Temp:97.4 B/P:139/55 Pulse:55 Resp:18 SaO2:100 OXYGEN Last weight lbs:139 oz:6 K.220 Method:Bed Scales Exam General appearance: alert, awake, no acute distress Cardiovascular: regular rate & rhythm Respiratory: clear to auscultation Reviewed: medications, vital signs, lab results Assessment/Plan Problem List 1. Non-STEMI (non-ST elevated myocardial infarction) Assessment/Plan: Troponin leak likely related to increased adrenaline from shoulder pain. No identifiable cause by cath. Will add Norvasc 5 mg 0.5 tab daily for angina treatment. Will hold lisinopril for now and add if BP tolerates. 2. Lung nodules 3. Weight loss, abnormal 4. Loss of appetite 5. Right-sided chest pain 6. Confusion and disorientation Patient condition Stable Plan: Pt being discharged home. Follow up with us in 1-2 wks if he desires or with Dr. Ayo Kulkarni at [place]. This inpt stay is expected to cross 2 MNs from start of care Yes at 0934
[2017-03-17 09:51] VITALS: BP 139/55
[2017-03-20 03:41] LABS: Mercury, Blood 3.2 ug/L (0.0-14.9)
== END 2017-03-17 09:45 | disposition home or self-care (01) | DRG 281 ==
LOC: ER 05:06 → 2ND 07:44 → ER 07:44 → 2ND 12:14
PROVIDERS: Emergency Medicine; Internal Medicine; Internal Medicine Adolescent Medicine
PROC: B2111ZZ Fluoroscopy of Multiple Coronary Arteries using Low Osmolar Contrast (ICD-10-PCS; principal; 2017-03-16 09:15)
PROC: B2131ZZ Fluoroscopy of Multiple Coronary Artery Bypass Grafts using Low Osmolar Contrast (ICD-10-PCS; principal; 2017-03-16 09:15)
PROC: B2181ZZ Fluoroscopy of Left Internal Mammary Bypass Graft using Low Osmolar Contrast (ICD-10-PCS; principal; 2017-03-16 09:15)
PROC: 4A023N7 Measurement of Cardiac Sampling and Pressure, Left Heart, Percutaneous Approach (ICD-10-PCS; principal; 2017-03-16 09:15)
PROC: B2151ZZ Fluoroscopy of Left Heart using Low Osmolar Contrast (ICD-10-PCS; principal; 2017-03-16 09:15)
DX: I21.4 Non-ST elevation (NSTEMI) myocardial infarction (principal); I25.729 Atherosclerosis of autologous artery coronary artery bypass graft(s) with unspecified angina pectoris; Z95.1 Presence of aortocoronary bypass graft; I25.119 Atherosclerotic heart disease of native coronary artery with unspecified angina pectoris; I25.2 Old myocardial infarction; Z72.0 Tobacco use; J44.9 Chronic obstructive pulmonary disease, unspecified
CPT/HCPCS: C1725; C1769; J1644; Q9967

== ENCOUNTER → 2017-04-05 | Outpatient (CLI) | payer MEDICARE ==
[~2017-04-05] MED LIST: ASPIRIN 81MG TA81 MG PO; LIPITOR80 MG PO; LISINOPRIL2.5 MG PO; OXYBUTYNIN5 MG PO; OXYCODONE HCL15 MG PO; PANTOPRAZOLE SO40 MG PO; PRAVACHOL 40MG40 MG PO; XANAX 0.5MG TA0.5 MG PO
--- NOTE | 2017-04-05 14:10 | RADIOLOGY REPORT PS360 ---
EXAM: CERVICAL SPINE 4 OR 5 VIEWS HISTORY: Neck and shoulder pain RT SHOULDER PAIN ORDERING PHYSICIAN: Brandon Umaña MD PATIENT AGE: 57 years COMPARISON: None FINDINGS: Normal alignment. No fracture or dislocation. No lytic or blastic change. There is mild multilevel degenerative disc disease from C3 to T1. Minimal anterolisthesis C4 on C5 of 1 to 2 mm. Foraminal narrowing is present on the right at C3-C4 and C6-C7 and on the left at C2-C3 and C5 C6 and to a lesser degree at C6-C7. Carotid artery calcifications are present. There are mild facet arthritic changes IMPRESSION: Cervical spondylosis with degenerative disc disease and foraminal narrowing as described above Carotid artery disease
== END ==
LOC: RAD 11:08
DX: M25.511 Pain in right shoulder (principal)

== ENCOUNTER → 2017-04-22 | Outpatient (CLI) | payer MEDICARE, MEDICAID ==
--- NOTE | 2017-04-23 05:35 | RADIOLOGY REPORT PS360 ---
CT CERVICAL SPINE W/O CONT INDICATION: Neck pain with right upper extremity and right shoulder pain CERVICAL [place]URALGIA ORDERING PHYSICIAN: Brandon Umaña MD PATIENT AGE: 57 years COMPARISON: Radiographs of 04/05/2017 TECHNIQUE: Axial images are obtained without contrast. Sagittal and coronal reformatted images are reviewed as well. FINDINGS: There is normal alignment. Mild osteoarthritic changes of the atlantoaxial joint at the dens C2-C3. Small central disc protrusion Mild uncovertebral hypertrophy on the left with mild left foraminal narrowing. C3-C4: Degenerative disc disease with broad-based disc osteophyte complex along with uncovertebral hypertrophy with canal stenosis and bilateral foraminal narrowing. C4-C5: Degenerative disc disease with mild bulging disc C5-C6: Degenerative disc disease with endplate osteophytes and uncovertebral hypertrophy with bilateral foraminal narrowing greater on the left C6-C7: Degenerative disc disease with endplate osteophytes along with uncovertebral and facet hypertrophy. Borderline bony canal stenosis with severe right foraminal narrowing along with right lateral recess narrowing. C7-T1: Unremarkable. Multiple calcified nodules in the lung apices with centrilobular emphysematous change. Scattered small lymph nodes are present in the neck. Small amount fluid is present in right mastoid sinus. IMPRESSION: 1. Cervical spondylosis with multilevel degenerative disc disease along with uncovertebral and facet arthritic change with resultant canal stenosis along with foraminal narrowing.. Please see above for detailed description at each level. 2. Small central disc protrusion C2-C3, Canal stenosis with bilateral foraminal narrowing at C3-C4, bilateral foraminal narrowing greater on the left at C5-C6, severe right-sided foraminal narrowing at C6-C7 IMPRESSION:
== END ==
LOC: RAD 12:27
DX: M54.12 Radiculopathy, cervical region (principal)